=== PATIENT | female | born 1945 | race Caucasian/White ===

== ENCOUNTER 2018-07-05 19:32 | Emergency (ER) | payer OTHER ==
[2018-07-05 19:45] VITALS: BP 146/73; PULSE 78; TEMP 98.1; BMI 26.2
--- NOTE | 2018-07-05 19:50 | PDOC ---
History of Present Illness - General History Source: Patient, Family Exam Limitations: Language Barrier - History of Present Illness Initial Comments: 07/05/18 19:58 The patient is a 72 year old female, with a significant PMH of HTN, who presents to the emergency department complaining of diarrhea and generalize weakness that began today. Per patient's son, patient notes stomach pain and diarrhea began after dinner today. Son states patient was found later today on the floor secondary to generalized weakness, denies LOC or head trauma. The patient also mentions she endorses chronic bilateral shoulder pain. The patient denies chest pain, shortness of breath, headache and dizziness. Denies fever, chills, nausea, vomit and constipation.Denies dysuria, frequency, urgency and hematuria. Allergies: NKDA Past surgical history: None reported Social history: None reported PCP: None reported <Jose Lewis - Last Filed: 07/05/18 19:57> <Marisol Fernandez - Last Filed: 07/08/18 04:18> - General Chief Complaint: Weakness Stated Complaint: DIARRHEA, WEAK Time Seen by Provider: 07/05/18 19:34 Past History <Jose Lewis - Last Filed: 07/05/18 19:57> - Past Medical History HTN: Yes - Suicide/Smoking/Psychosocial Hx Smoking History: Never smoked Hx Alcohol Use: No Drug/Substance Use Hx: No Substance Use Type: None <Marisol Fernandez - Last Filed: 07/08/18 04:18> - Past Medical History Allergies/Adverse Reactions: Allergies Allergy/AdvReac Type Severity Reaction Status Date / Time No Known Allergies Allergy Verified 01/17/15 11:42 Home Medications: Ambulatory Orders Amlodipine Besylate [Norvasc -] 10 mg PO DAILY 01/17/15 Losartan Potassium 100 mg PO DAILY 07/05/18 Review of Systems - Review of Systems Able to Perform ROS?: Yes Comments:: 07/05/18 19:58 GENERAL/CONSTITUTIONAL: +Weakness. No fever or chills. HEAD, EYES, EARS, NOSE AND THROAT: No change in vision. No ear pain or discharge. No sore throat. CARDIOVASCULAR: No chest pain or shortness of breath. RESPIRATORY: No cough, wheezing, or hemoptysis. GASTROINTESTINAL:+Diarrhea. No nausea, vomiting or constipation. GENITOURINARY: No dysuria, frequency, or change in urination. MUSCULOSKELETAL: No joint or muscle swelling or pain. No neck or back pain. SKIN: No rash NEUROLOGIC: No headache, vertigo, loss of consciousness, or change in strength/ sensation. ENDOCRINE: No increased thirst. No abnormal weight change. HEMATOLOGIC/LYMPHATIC: No anemia, easy bleeding, or history of blood clots. ALLERGIC/IMMUNOLOGIC: No hives or skin allergy. <Jose Lewis - Last Filed: 07/05/18 19:57> *Physical Exam - Vital Signs Last Vital Signs Temp Pulse Resp BP Pulse Ox 98.1 F 78 16 146/73 99 07/05/18 19:38 02 19:38 07/05/18 19:38 07/05/18 19:38 07/05/18 19:38 - Physical Exam Comments: 07/05/18 19:58 GENERAL: Awake, alert, and fully oriented, in no acute distress HEAD: No signs of trauma EYES: PERRLA, EOMI, sclera anicteric, conjunctiva clear ENT:+Dry mucous membrane. Auricles normal inspection, hearing grossly normal, nares patent, oropharynx clear without exudates. NECK: Normal ROM, supple, no lymphadenopathy, JVD, or masses LUNGS: Breath sounds equal, clear to auscultation bilaterally. No wheezes, and no crackles HEART: Regular rate and rhythm, normal S1 and S2, no murmurs, rubs or gallops ABDOMEN: Soft, nontender, normoactive bowel sounds. No guarding, no rebound. No masses EXTREMITIES: Normal range of motion, no edema. No clubbing or cyanosis. No cords, erythema, or tenderness NEUROLOGICAL: Cranial nerves II through XII grossly intact. Normal speech, normal gait SKIN: Warm, Dry, normal turgor, no rashes or lesions noted. <Jose Lewis - Last Filed: 07/05/18 19:57> Moderate Sedation - Procedure Monitoring Vital Signs: Procedure Monitoring Vital Signs Temperature 98.1 F 07/05/18 19:38 Pulse Rate 78 07/05/18 19:38 Respiratory Rate 16 07/05/18 19:38 Blood Pressure 146/73 07/05/18 19:38 O2 Sat by Pulse Oximetry (%) 99 07/05/18 19:38 <Jose Lewis - Last Filed: 07/05/18 19:57> ED Treatment Course - LABORATORY CBC & Chemistry Diagram: 07/05/18 20:00 07/05/18 20:00 <Marisol Fernandez - Last Filed: 07/08/18 04:18> Medical Decision Making - Medical Decision Making Documentation has been prepared under my direction and personally reviewed by me in its entirety. I attest that this documented accurately reflects all work, treatment, procedures and medical decision making performed by me. As noted above, this 72-year-old woman is brought into the ER with weakness after episodes of diarrhea. Patient was found by son-in-law sitting on the floor but denied having fallen. She admits to being mildly weak but adamantly denies that she hit her head/neck area. She has no other complaints currently. Exam as noted. 12-lead electrocardiogram was performed: Normal sinus rhythm at 83 beats for minute. No evidence of acute ST or T-wave abnormalities. Intervals, wave forms and axis are all normal. No evidence of acute cardiac arrhythmia. CBC/chemistry profile/troponin/urinalysis sent. Laboratory analysis is essentially normal except for mild elevation of BUN as compared to creatinine suggesting mild prerenal azotemia. Urinalysis also mildly abnormal with presence of LE trace, 2-5 RBC, 5-10 WBC, 1 + bacteria, 1+ epi. Although this may be a contaminated specimen, urine sent for culture and sensitivities Patient will be discharged in the company of her daughter and son-in-law with instructions to drink plenty of fluids. If she has any persistent diarrhea Pepto-Bismol/Kaopectate/Imodium can be given. She should follow-up with her general doctor within the next 48 hours. Otherwise, she should return the to the emergency room if she has any persistent severe weakness, vertigo, chest pain, shortness of breath or other symptoms <Marisol Fernandez - Last Filed: 07/08/18 04:18> *DC/Admit/Observation/Transfer - Attestations Scribe Attestion: 07/05/18 19:59 Documentation prepared by Jose Lewis, acting as biomedical engineering aide for Marisol Fernandez MD. <Jose Lewis - Last Filed: 07/05/18 19:57> <Marisol Fernandez - Last Filed: 07/08/18 04:18> Diagnosis at time of Disposition: History of weakness Diarrhea Qualifiers: Diarrhea type: unspecified type Qualified Code(s): R19.7 - Diarrhea, unspecified - Discharge Dispostion Disposition: HOME Condition at time of disposition: Stable - Patient Instructions Printed Discharge Instructions: Diarrhea Additional Instructions: plenty of fluids as tolerated imodium/kaopectate/pepto-bismol as needed for diarrhea return to ER immediately if persistent weakness/lightheadedness/pain occurs followup with general doctor within next 2-3 days as planned
[2018-07-05] MEDS ORDERED: SODIUM CHLORIDE 1,000 ML IV SCH (20:00)
[2018-07-05 20:11] LABS: BASO % 0.8 % (0-2.0); EOS % 6.7 % (0-4.5); HEMATOCRIT 34.5 % (32.4-45.2); HEMOGLOBIN 11.6 GM/dl (10.7-15.3); LYMPH % 24.8 % (8-40); MCH 30.9 pg (25.7-33.7); MCHC 33.6 g/dl (32.0-36.0); MEAN PLT VOLUME 8.4 fl (7.5-11.1); MONO % 7.2 % (3.8-10.2); NEUT % 60.5 % (42.8-82.8); PLATELET COUNT 303 K/MM3 (134-434); RBC 3.76 M/mm3 (3.60-5.2); WHITE BLOOD COUNT 7.1 K/mm3 (4.0-10.8)
[2018-07-05 20:28] LABS: ALBUMIN 3.9 g/dl (3.4-5.0); ALK PHOS 83 U/L (45-117); ANION GAP 10 MMOL/L (8-16); BILIRUBIN,TOTAL 0.3 mg/dl (0.2-1); BLOOD UREA NITROGEN 21 mg/dl (7-18); CALCIUM 9.3 mg/dl (8.5-10); CHLORIDE 103 mmol/L (98-107); CO2 22 mmol/L (21-32); GLUCOSE,RANDOM 243 mg/dl (74-106); POTASSIUM 3.9 mmol/L (3.5-5.1); SGOT/AST 23 U/L (15-37); SGPT/ALT 17 U/L (13-61); SODIUM 135 mmol/L (136-145); TOT PROT 7.2 g/dl (6.4-8.2)
[2018-07-05 21:39] LABS: PH,URINE 5.5 (4.5-8); URINE APPEARANCE Clear; URINE BILIRUBIN Negative (NEGATIVE); URINE COLOR Yellow; URINE GLUCOSE (UA) Trace (NEGATIVE); URINE KETONE Negative (NEGATIVE); URINE LEUK ESTERASE TRACE (NEGATIVE); URINE NITRITE Negative (NEGATIVE); URINE PROTEIN 1+ (NEGATIVE); URINE UROBILINOGEN 0.2 (0.2-1.0)
[2018-07-05 21:42] LABS: EPI CELLS 1+ /HPF; URINE BACTERIA 1+ /hpf (NEGATIVE)
--- NOTE | 2018-07-06 09:54 | EKG ---
Test Reason : Blood Pressure : / mmHG Vent. Rate : 083 BPM Atrial Rate : 083 BPM P-R Int : 160 ms QRS Dur : 076 ms QT Int : 360 ms P-R-T Axes : 068 064 030 degrees QTc Int : 423 ms NORMAL SINUS RHYTHM NORMAL ECG WHEN COMPARED WITH ECG OF 17-JAN-2015 12:11, NO SIGNIFICANT CHANGE WAS FOUND Confirmed by REJI LI MD ([id number]) on 07/06/2018 9:53:58 AM Referred By: SHASHI ABRAMS Confirmed By:REJI LI MD
== END 2018-07-05 22:05 | disposition home or self-care (01) ==
LOC: FER 19:32
PROC: 3E0337Z Introduction of Electrolytic and Water Balance Substance into Peripheral Vein, Percutaneous Approach (ICD-10-PCS; principal; 2018-07-05)
DX: R19.7 Diarrhea, unspecified (principal); R53.1 Weakness; I10 Essential (primary) hypertension
CPT/HCPCS: 36415; 80053; 81003; 81015; 82550; 84484; 85025; 87086; 87186; 93005; 99281-25; J7030